=== PATIENT | male | born 1975 | race Caucasian/White ===

== ENCOUNTER 2020-04-19 08:26 | Emergency (ER) | payer MEDICARE, OTHER ==
[~2020-04-19 08:26] MED LIST: AUGMENTIN 875-1 EACH PO; CORTIZONE-1057 GM TP; ELIMITE 5% CREA60 GM TOP; IVERMECTIN3 MG PO; KEFLEX500 MG PO; LEXAPRO10 MG PO; NORCO 7.5-3251 EACH PO; NYAMYC60 GM TP; PROTONIX40 MG PO; STROMECTOL3 MG PO; VISTARIL 50 MG50 MG PO; VISTARIL25 MG PO; VISTARIL50 MG PO; ZOFRAN ODT 4 MG4 MG PO; ZOFRAN ODT 4 MG4 MG SL; ZOFRAN4 MG PO
[2020-04-19 08:50] LABS: HEMOGLOBIN 14.4 gm/dl (14.0-17.5); RED BLOOD COUNT 4.5 M/UL (4.20-5.50); WHITE BLOOD COUNT 5.9 K/UL (4.5-11.0)
[2020-04-19 09:11] LABS: BUN/CREATININE RATIO 11 (0-10)
[2020-04-20 09:13] LABS: HBSAG SCREEN Negative (Negative); HEP A AB, IGM Negative (Negative); HEP B CORE AB, IGM Negative (Negative); HEP C VIRUS AB >11.0 (0.0-0.9)
== END 2020-04-19 12:50 | disposition home or self-care (01) ==
LOC: ER1 08:26
PROVIDERS: Emergency Medicine
DX: K74.60 Unspecified cirrhosis of liver (principal); F19.10 Other psychoactive substance abuse, uncomplicated; F17.200 Nicotine dependence, unspecified, uncomplicated; Z86.19 Personal history of other infectious and parasitic diseases
CPT/HCPCS: 80053; 80074; 80307; 81001; 82150; 82550; 82553; 83605; 83690; 83874; 84484; 85025; 85610; 85730; 93005; 96374; 96375; 99284; J2060; J2405; J7030

== ENCOUNTER 2020-06-23 12:33 | Emergency (ER) | payer MEDICARE, OTHER ==
[~2020-06-23 12:33] MED LIST changes: -MYCOSTATIN OINT15 GM TOP
[2020-06-23 13:53] LABS: HEMOGLOBIN 12.5 gm/dl (14.0-17.5); RED BLOOD COUNT 3.92 M/UL (4.20-5.50); WHITE BLOOD COUNT 2.5 K/UL (4.5-11.0)
[2020-06-23 14:13] LABS: BUN/CREATININE RATIO 15 (0-10)
[2020-06-23] MEDS ORDERED: MYCOSTATIN OINT15 GM TOP (16:57)
[2020-06-23] MEDS ORDERED: ELIMITE 5% CREA60 GM TOP (16:57)
[2020-06-23] MEDS ORDERED: ZOFRAN4 MG PO (16:57)
== END 2020-06-23 17:30 | disposition home or self-care (01) ==
LOC: ER1 12:33
PROVIDERS: Physician Assistant Medical
DX: R10.84 Generalized abdominal pain (principal); R21 Rash and other nonspecific skin eruption; D61.818 Other pancytopenia; B19.20 Unspecified viral hepatitis C without hepatic coma; Z91.041 Radiographic dye allergy status
CPT/HCPCS: 80053; 81001; 83690; 85025; 85610; 96374; 99284; J2405

== ENCOUNTER → 2020-06-23 | Emergency (ER) | payer MEDICARE, OTHER ==
[~2020-06-23] MED LIST changes: +MYCOSTATIN OINT15 GM TOP
== END | disposition left against medical advice (07) ==
LOC: ER1 12:33
DX: Z53.9 Procedure and treatment not carried out, unspecified reason (principal)